=== PATIENT | female | born 1995 | race Caucasian/White ===

== ENCOUNTER 2018-09-05 15:51 | Emergency (ER) | payer BC ==
[~2018-09-05] VITALS: Ht 160 cm; Wt 77.4 kg
--- NOTE | 2018-09-05 16:45 | NUR ---
GALLERY ASSISTANT: PT ABMULATORY TO ED ROOM 28 FROM [facility] IN NAD AT THIS TIME, PT GIVEN GOWN & REQUESTED TO PROVIDE UA
[2018-09-05] MEDS ORDERED: SODIUM CHLORIDE FLUSH 10ML SYR IVF ONE (17:00)
[2018-09-05] MEDS ORDERED: MORPHINE SULFATE 4 MG/ML, 1ML IVPush PRN (17:00)
[2018-09-05] MEDS ORDERED: ONDANSETRON 2MG/ML, 2ML IVPush ONE (17:00)
--- NOTE | 2018-09-05 17:00 | NUR ---
LATE ENTRY PT ARRIVES TO ED WITH C/O OF LOWER ABD PAIN WITH INCREASED VAGINAL PAIN WIH SEXUAL INTERCOURSE. PT REPORTS THAT OBGYN WAS UNABLE TO GET SPECULUM OR HANDS INTO VAGINAL CANAL SECONDARY TO INFLAMATION. PT REPORTS UNPROTECTED SEX AND MULTIPLE PARTNERS. PT DENIES ANY TRUAMA. PT CONNECTED TO MONITORS AND CALL LIGHT IN REACH. AWAITING FURTHER ORDERS. VSS.
[2018-09-05] MEDS ORDERED: MORPHINE SULFATE 4 MG/ML, 1ML ONE (17:25)
[2018-09-05] MEDS ORDERED: ONDANSETRON 2MG/ML, 2ML ONE (17:25)
[2018-09-05 17:50] LABS: BASOPHILS # (AUTO) 0.04 x10^3/uL (0-0.1); BASOPHILS % (AUTO) 0 % (0-1); EOSINOPHILS # (AUTO) 0.83 x10^3/uL (0-0.4); EOSINOPHILS % (AUTO) 8 % (1-7); LYMPHOCYTES # (AUTO) 2.21 x10^3/uL (1-3.4); LYMPHOCYTES % (AUTO) 21 % (22-44); MD NO; MEAN CORPUSCULAR HEMOGLOBIN 30.3 pg (27.0-34.8); MEAN CORPUSCULAR HGB CONC 33.2 g/dL (32.4-35.8); MEAN CORPUSCULAR VOLUME 91.3 fL (80-100); MEAN PLATELET VOLUME 8.6 fL (7.4-10.4); MONOCYTES # (AUTO) 0.83 x10^3/uL (0.2-0.8); MONOCYTES % (AUTO) 8 % (2-9); NEUTROPHILS % (AUTO) 62 % (42-75); PLATELET COUNT 344 x10^3/uL (130-400); RED BLOOD COUNT 5.25 x10^6/uL (3.82-5.3); RED CELL DISTRIBUTION WIDTH 14.1 % (9.6-15.2)
[2018-09-05 17:53] LABS: CULTURE INDICATED? YES; MICROSCOPIC INDICATED
[2018-09-05 18:00] LABS: ALBUMIN 3.7 g/dL (3.4-5.0); ANION GAP 5 mmol/L (5-15); CALCIUM 8.8 mg/dL (8.5-10.1); CHLORIDE 109 mmol/L (98-107)
--- NOTE | 2018-09-05 18:01 | NUR ---
PT MEDICATED PER EMAR AND US AT BEDSIDE.
[2018-09-05 18:02] VITALS: BP 122/64
[2018-09-05 18:06] LABS: ALANINE AMINOTRANSFERASE 18 U/L (12-78); ALKALINE PHOSPHATASE 106 U/L (45-117); BILIRUBIN,TOTAL 0.6 mg/dL (0.2-1.0); CREATININE 0.98 mg/dL (0.55-1.02)
[2018-09-05] MEDS ORDERED: AZITHROMYCIN 500 MG TABLET PO ONE (19:00)
[2018-09-05] MEDS ORDERED: CEFTRIAXONE 250 MG IM ONE (19:00)
[2018-09-05] MEDS ORDERED: FENTANYL PF 100 MCG/2ML IVPush ONE (19:00)
[2018-09-05] MEDS ORDERED: FENTANYL PF 100 MCG/2ML ONE (19:15)
--- NOTE | 2018-09-05 19:31 | NUR ---
NOE HILL AND JENNY CARPENTER PERFORMING PELVIC AT BEDSIDE.
[2018-09-05] MEDS ORDERED: CEFTRIAXONE PMX 1GM/50ML 50 ML ONE (19:48)
[2018-09-05] MEDS ORDERED: AZITHROMYCIN 250 MG TABLET ONE (19:49)
[2018-09-05 19:52] LABS: CLUE CELLS NONE SEEN (NONE SEEN)
[2018-09-05 19:56] LABS: WET PREP WBCS MODERATE (FEW)
[2018-09-05] MEDS ORDERED: CEFTRIAXONE PMX 1GM/50ML 50 ML IV ONE (20:00)
[2018-09-05] MEDS ORDERED: CEFTRIAXONE 1,000 MG IVPush ONE (20:00)
--- NOTE | 2018-09-05 21:14 | NUR ---
Patient/Caregiver given discharge instructions and they have confirmed that they understand the instructions. Patient ambulatory with steady gait.
== END 2018-09-05 21:20 | disposition home or self-care (01) ==
LOC: ED 20:18
DX: N30.00 Acute cystitis without hematuria (principal); R10.2 Pelvic and perineal pain
CPT/HCPCS: 36415; 76856; 80053; 81001; 83690; 84703; 85025; 87086; 87210; 87491; 87591; 87808; 96374; 96375; 99284; J0696; J2270; J2405; J3010

== ENCOUNTER 2018-09-07 18:06 | Inpatient (IN) | payer BC ==
[~2018-09-07] VITALS: Ht 160 cm; Wt 85.0 kg
[2018-09-07 19:46] LABS: BASOPHILS # (AUTO) 0.04 x10^3/uL (0-0.1); BASOPHILS % (AUTO) 0 % (0-1); EOSINOPHILS % (AUTO) 7 % (1-7); LYMPHOCYTES % (AUTO) 25 % (22-44); MD NO; MEAN CORPUSCULAR HEMOGLOBIN 29.5 pg (27.0-34.8); MEAN CORPUSCULAR HGB CONC 32.6 g/dL (32.4-35.8); MEAN CORPUSCULAR VOLUME 90.5 fL (80-100); MEAN PLATELET VOLUME 8.1 fL (7.4-10.4); MONOCYTES # (AUTO) 0.79 x10^3/uL (0.2-0.8); MONOCYTES % (AUTO) 8 % (2-9); NEUTROPHILS # (AUTO) 6.09 x10^3/uL (1.8-6.8); NEUTROPHILS % (AUTO) 60 % (42-75); PLATELET COUNT 346 x10^3/uL (130-400); RED BLOOD COUNT 5.38 x10^6/uL (3.82-5.3); RED CELL DISTRIBUTION WIDTH 14.3 % (9.6-15.2)
--- NOTE | 2018-09-07 19:54 | NUR ---
PATIENT PRESENTS TO ED TODAY FOR LEFT FLANK PAIN STARTING TODAY, PATIENT SEEN AT ON MON FOR HEMATURIA, DIAGNOSED WITH UTI. AWAITING MD ORDERS, CALL LIGHT WITHIN REACH.
[2018-09-07 19:55] LABS: ALANINE AMINOTRANSFERASE 21 U/L (12-78); ALBUMIN 4.2 g/dL (3.4-5.0); ANION GAP 3 mmol/L (5-15); CALCIUM 9.4 mg/dL (8.5-10.1); CHLORIDE 110 mmol/L (98-107); CREATININE 0.89 mg/dL (0.55-1.02)
[2018-09-07 19:58] LABS: ALKALINE PHOSPHATASE 108 U/L (45-117); BILIRUBIN,TOTAL 0.4 mg/dL (0.2-1.0); TOTAL PROTEIN 8.6 g/dL (6.4-8.2)
[2018-09-07] MEDS ORDERED: morphine SULFATE 10 MG/ML, 1ML IVPush ONE (20:00)
[2018-09-07] MEDS ORDERED: KETOROLAC 30 MG/1 ML IVPush ONE (20:00)
[2018-09-07] MEDS ORDERED: KETOROLAC 30 MG/1 ML ONE (20:04)
[2018-09-07] MEDS ORDERED: MORPHINE SULFATE 4 MG/ML, 1ML ONE (20:04)
--- NOTE | 2018-09-07 20:11 | NUR ---
PATIENT TO CT VIA MARTINE BECK.
[2018-09-07 20:24] LABS: MICROSCOPIC NOT IND
[2018-09-07 20:26] LABS: CULTURE INDICATED? NO
--- NOTE | 2018-09-07 21:57 | NUR ---
report recieved, pt resting in bed, erp at bedside
[2018-09-07] MEDS ORDERED: HYDROmorphone 2 MG/ML, 1ML ONE (22:00)
[2018-09-07] MEDS: HYDROmorphone 2 MG/ML, 1ML IVPush PRN (22:11)
--- NOTE | 2018-09-07 22:15 | NUR ---
pt medicated, to US at this time, raymundos
--- NOTE | 2018-09-07 23:10 | NUR ---
REPORT OF PT FROM DAVID QUIÑONEZ AND ASSUMING CARE OF PT AT THIS TIME.
[2018-09-08] MEDS ORDERED: HYDROmorphone 2 MG/ML, 1ML ONE (00:05)
[2018-09-08] MEDS: HYDROmorphone 2 MG/ML, 1ML IVPush PRN (00:09)
--- NOTE | 2018-09-08 00:09 | NUR ---
PT MEDICATED FOR PAIN PER MAR. VSS AT THIS TIME. ROOM SETUP FOR PELVIC EXAM. PT ON PHONE IN [facility] AND APPEARS TO BE RESTING COMFORTABLY AT THIS TIME.
[2018-09-08 00:19] LABS: HCT (SEDRATE) 48.7 % (34.6-47.8)
[2018-09-08] MEDS ORDERED: ACETAMINOPHEN 325 MG TABLET PO PRN (00:30)
[2018-09-08] MEDS ORDERED: BISACODYL 10 MG SUPP PR PRN (00:30)
[2018-09-08] MEDS ORDERED: POLYETHYLENE GLYCOL 17 GM PACKET PO PRN (00:30)
[2018-09-08] MEDS ORDERED: ONDANSETRON 2MG/ML, 2ML IVPush PRN (00:30)
[2018-09-08 00:41] LABS: CLUE CELLS NONE SEEN (NONE SEEN)
[2018-09-08 00:42] LABS: WET PREP WBCS FEW (FEW)
[2018-09-08 00:45] VITALS: BP 104/59
[2018-09-08 01:11] VITALS: BP 111/57
[2018-09-08] MEDS: morphine SULFATE 10 MG/ML, 1ML IVPush PRN ×5 (02:02→20:07)
[2018-09-08 05:29] LABS: BASOPHILS # (AUTO) 0.04 x10^3/uL (0-0.1); BASOPHILS % (AUTO) 0 % (0-1); EOSINOPHILS # (AUTO) 0.81 x10^3/uL (0-0.4); EOSINOPHILS % (AUTO) 7 % (1-7); LYMPHOCYTES # (AUTO) 3.49 x10^3/uL (1-3.4); LYMPHOCYTES % (AUTO) 31 % (22-44); MD NO; MEAN CORPUSCULAR HEMOGLOBIN 30.5 pg (27.0-34.8); MEAN CORPUSCULAR HGB CONC 32.9 g/dL (32.4-35.8); MEAN CORPUSCULAR VOLUME 92.6 fL (80-100); MEAN PLATELET VOLUME 8.8 fL (7.4-10.4); MONOCYTES # (AUTO) 0.99 x10^3/uL (0.2-0.8); MONOCYTES % (AUTO) 9 % (2-9); NEUTROPHILS # (AUTO) 6.01 x10^3/uL (1.8-6.8); NEUTROPHILS % (AUTO) 53 % (42-75); PLATELET COUNT 342 x10^3/uL (130-400); RED BLOOD COUNT 4.87 x10^6/uL (3.82-5.3); RED CELL DISTRIBUTION WIDTH 14.6 % (9.6-15.2)
[2018-09-08 05:43] LABS: ALBUMIN 3.4 g/dL (3.4-5.0); ANION GAP 5 mmol/L (5-15); CALCIUM 8.9 mg/dL (8.5-10.1); CHLORIDE 108 mmol/L (98-107)
[2018-09-08 05:47] LABS: ALANINE AMINOTRANSFERASE 18 U/L (12-78); ALKALINE PHOSPHATASE 83 U/L (45-117); BILIRUBIN,TOTAL 0.7 mg/dL (0.2-1.0); CREATININE 0.82 mg/dL (0.55-1.02); TOTAL PROTEIN 7.4 g/dL (6.4-8.2)
[2018-09-08 06:52] VITALS: BP 110/68
[2018-09-08] MEDS: KETOROLAC 30 MG/1 ML IV PRN ×3 (08:58→23:53)
[2018-09-08] MEDS: SODIUM CHLORIDE FLUSH 10ML SYR IVF SCH ×2 (09:01→19:55)
[2018-09-08] MEDS: SENNA/DOCUSATE TABLET PO SCH (09:01)
[2018-09-08] MEDS ORDERED: FLUCONAZOLE 50 MG TABLET PO ONE (12:00)
[2018-09-08] MEDS ORDERED: CIPROFLOXACIN/PMX 400MG/200ML 200 ML IV SCH (12:00)
[2018-09-08] MEDS ORDERED: FLUCONAZOLE 200 MG TABLET ONE (12:02)
[2018-09-08] MEDS: OXYcodone/APAP 5/325MG TABLET PO PRN ×4 (12:04→22:17)
[2018-09-08 13:46] VITALS: BP 105/69
[2018-09-08] MEDS ORDERED: DIPHENHYDRAMINE 50 MG/ML, 1ML ONE (15:13)
[2018-09-08] MEDS: HEPARIN 5,000 UNITS/ML, 1ML SQ SCH ×2 (15:28→19:56)
[2018-09-08] MEDS ORDERED: DIPHENHYDRAMINE 50 MG/ML, 1ML IVPush PRN (15:30)
[2018-09-08] MEDS: AMPICILLIN/SULBACTAM 3 GM in SODIUM CHLORIDE 0.9% 100 ML IV SCH (19:40)
[2018-09-08 19:57] VITALS: BP 123/69
[2018-09-08] MEDS ORDERED: CALCIUM CARBONATE 500 MG TAB.CHEW ONE (20:00)
[2018-09-08] MEDS ORDERED: CALCIUM CARBONATE 500 MG TAB.CHEW PO PRN (20:00)
[2018-09-09] MEDS: AMPICILLIN/SULBACTAM 3 GM in SODIUM CHLORIDE 0.9% 100 ML IV SCH ×4 (01:28→19:52)
[2018-09-09] MEDS: morphine SULFATE 10 MG/ML, 1ML IVPush PRN ×3 (01:46→16:43)
[2018-09-09 01:56] VITALS: BP 93/59
[2018-09-09 05:31] LABS: BASOPHILS # (AUTO) 0.05 x10^3/uL (0-0.1); BASOPHILS % (AUTO) 1 % (0-1); EOSINOPHILS # (AUTO) 0.69 x10^3/uL (0-0.4); EOSINOPHILS % (AUTO) 8 % (1-7); LYMPHOCYTES # (AUTO) 2.73 x10^3/uL (1-3.4); LYMPHOCYTES % (AUTO) 31 % (22-44); MD NO; MEAN CORPUSCULAR HEMOGLOBIN 29.8 pg (27.0-34.8); MEAN CORPUSCULAR HGB CONC 32.5 g/dL (32.4-35.8); MEAN CORPUSCULAR VOLUME 91.5 fL (80-100); MEAN PLATELET VOLUME 8.2 fL (7.4-10.4); MONOCYTES # (AUTO) 0.76 x10^3/uL (0.2-0.8); MONOCYTES % (AUTO) 9 % (2-9); NEUTROPHILS % (AUTO) 53 % (42-75); PLATELET COUNT 322 x10^3/uL (130-400); RED BLOOD COUNT 4.93 x10^6/uL (3.82-5.3)
[2018-09-09 05:37] LABS: ALBUMIN 3.2 g/dL (3.4-5.0); ANION GAP 6 mmol/L (5-15); CALCIUM 8.5 mg/dL (8.5-10.1); CHLORIDE 108 mmol/L (98-107)
[2018-09-09 05:42] LABS: ALANINE AMINOTRANSFERASE 18 U/L (12-78); ALKALINE PHOSPHATASE 85 U/L (45-117); BILIRUBIN,TOTAL 0.7 mg/dL (0.2-1.0); CREATININE 0.95 mg/dL (0.55-1.02); TOTAL PROTEIN 7.1 g/dL (6.4-8.2)
[2018-09-09] MEDS: HEPARIN 5,000 UNITS/ML, 1ML SQ SCH (07:30)
[2018-09-09] MEDS: SENNA/DOCUSATE TABLET PO SCH (07:44)
[2018-09-09] MEDS: OXYcodone/APAP 5/325MG TABLET PO PRN ×5 (07:45→22:06)
[2018-09-09] MEDS: SODIUM CHLORIDE FLUSH 10ML SYR IVF SCH ×2 (07:45→19:53)
[2018-09-09 08:02] VITALS: BP 113/71
[2018-09-09] MEDS ORDERED: ENOXAPARIN 40 MG/0.4 ML SQ SCH (13:00)
[2018-09-09] MEDS ORDERED: DIPHENHYDRAMINE 25 MG CAPSULE PO PRN (13:00)
[2018-09-09] MEDS: CYCLOBENZAPRINE 10 MG TABLET PO SCH ×3 (13:32→21:00)
[2018-09-09 15:20] VITALS: BP 123/75
[2018-09-09] MEDS: KETOROLAC 30 MG/1 ML IV PRN (17:56)
[2018-09-09 21:09] VITALS: BP 106/64
[2018-09-10] MEDS: KETOROLAC 30 MG/1 ML IV PRN ×2 (00:07→06:33)
[2018-09-10 00:10] VITALS: BP 114/72
[2018-09-10] MEDS: OXYcodone/APAP 5/325MG TABLET PO PRN ×2 (02:08→06:33)
[2018-09-10] MEDS: AMPICILLIN/SULBACTAM 3 GM in SODIUM CHLORIDE 0.9% 100 ML IV SCH (02:08)
[2018-09-10] MEDS: morphine SULFATE 10 MG/ML, 1ML IVPush PRN (03:56)
[2018-09-10 06:02] LABS: BASOPHILS # (AUTO) 0.04 x10^3/uL (0-0.1); BASOPHILS % (AUTO) 1 % (0-1); EOSINOPHILS # (AUTO) 0.72 x10^3/uL (0-0.4); EOSINOPHILS % (AUTO) 10 % (1-7); LYMPHOCYTES # (AUTO) 2.21 x10^3/uL (1-3.4); LYMPHOCYTES % (AUTO) 29 % (22-44); MD NO; MEAN CORPUSCULAR HEMOGLOBIN 29.6 pg (27.0-34.8); MEAN CORPUSCULAR HGB CONC 32.5 g/dL (32.4-35.8); MEAN CORPUSCULAR VOLUME 91.3 fL (80-100); MEAN PLATELET VOLUME 8.3 fL (7.4-10.4); MONOCYTES # (AUTO) 0.72 x10^3/uL (0.2-0.8); MONOCYTES % (AUTO) 10 % (2-9); NEUTROPHILS # (AUTO) 3.84 x10^3/uL (1.8-6.8); NEUTROPHILS % (AUTO) 51 % (42-75); PLATELET COUNT 305 x10^3/uL (130-400); RED BLOOD COUNT 4.72 x10^6/uL (3.82-5.3); RED CELL DISTRIBUTION WIDTH 14.7 % (9.6-15.2)
[2018-09-10 06:16] LABS: CHLORIDE 109 mmol/L (98-107)
[2018-09-10 06:30] LABS: ALANINE AMINOTRANSFERASE 21 U/L (12-78); ALBUMIN 3.1 g/dL (3.4-5.0); ALKALINE PHOSPHATASE 79 U/L (45-117); ANION GAP 4 mmol/L (5-15); BILIRUBIN,TOTAL 0.2 mg/dL (0.2-1.0); CALCIUM 8.5 mg/dL (8.5-10.1); CREATININE 0.79 mg/dL (0.55-1.02); TOTAL PROTEIN 6.8 g/dL (6.4-8.2)
[2018-09-10 07:41] VITALS: BP 97/58
[2018-09-10] MEDS ORDERED: AMOXICILLIN/CLAV 875-125MG TABLET PO SCH (09:00)
[2018-09-10] MEDS: SENNA/DOCUSATE TABLET PO SCH (09:05)
[2018-09-10] MEDS: CYCLOBENZAPRINE 10 MG TABLET PO SCH (09:05)
[2018-09-10] MEDS: SODIUM CHLORIDE FLUSH 10ML SYR IVF SCH (09:06)
[2018-09-10] MEDS ORDERED: MAGNESIUM CITRATE 300ML ORAL SOL PO ONE (10:00)
[2018-09-10] MEDS ORDERED: SENN1TAB19 PO (10:24)
[2018-09-10] MEDS ORDERED: AMOX1TAB12 PO (10:24)
[2018-09-10] MEDS ORDERED: ACET325T26 PO (10:24)
[2018-09-10] MEDS ORDERED: ONDA4TAB7 PO (10:24)
[2018-09-10] MEDS ORDERED: CYCL-259 PO (10:24)
[2018-09-10 11:20] VITALS: BP 95/44
[2018-09-10 15:05] VITALS: BP 99/56
== END 2018-09-10 11:55 | disposition home or self-care (01) | DRG 690 ==
LOC: ED 19:32 → EDIP 23:15 → 4NOR 09-08 00:29
PROVIDERS: ADMIT Internal Medicine; ATTEND Internal Medicine
DX: N12 Tubulo-interstitial nephritis, not specified as acute or chronic (principal); G89.29 Other chronic pain; T36.8X5A Adverse effect of other systemic antibiotics, initial encounter; J45.909 Unspecified asthma, uncomplicated; F12.90 Cannabis use, unspecified, uncomplicated; M43.10 Spondylolisthesis, site unspecified; Y92.89 Other specified places as the place of occurrence of the external cause; Z88.1 Allergy status to other antibiotic agents; Z91.011 Allergy to milk products
CPT/HCPCS: 36415; 74176; 76830; 80053; 81003; 83690; 84702; 85025; 85651; 87210; 87808; 96374; 96375; 96376; G0378; J0295; J0744; J1170; J1885; J1200; J2270

== ENCOUNTER 2019-06-09 15:31 | Emergency (ER) | payer BC, OTHER ==
[~2019-06-09] VITALS: Ht 160 cm; Wt 75.8 kg
[~2019-06-09 15:31] MED LIST: ACET325T26 PO; AMOX1TAB12 PO; CYCL-259 PO; ONDA4TAB7 PO; SENN-193 PO
[2019-06-09 15:36] VITALS: BP 133/71
[2019-06-09] MEDS ORDERED: LIDOCAINE-MPF 1%, 5ML INFIL ONE (16:00)
[2019-06-09] MEDS ORDERED: LIDOCAINE-MPF 1%, 5ML ONE (16:12)
[2019-06-09] MEDS ORDERED: NEOSPORIN OINT. PKT 1 PACKET ONE (16:40)
== END 2019-06-09 17:06 | disposition home or self-care (01) ==
LOC: ED 17:01
DX: S91.202A Unspecified open wound of left great toe with damage to nail, initial encounter (principal); W18.40XA Slipping, tripping and stumbling without falling, unspecified, initial encounter; Y93.89 Activity, other specified; Y92.89 Other specified places as the place of occurrence of the external cause; Y99.8 Other external cause status
CPT/HCPCS: 11730; 99284